=== PATIENT | male | born 1975 | race Caucasian/White ===

== ENCOUNTER 2017-04-29 13:27 | Emergency (ER) | payer BC ==
--- NOTE | 2017-04-29 15:26 | EDM.PDOC ---
ED HPI GENERAL MEDICAL PROBLEM - General Chief Complaint: General Stated Complaint: RIGHT FOOT PAIN Time Seen by Provider: 04/29/17 15:21 Source of Information: Reports: Patient - History of Present Illness INITIAL COMMENTS - FREE TEXT/NARRATIVE: HISTORY AND PHYSICAL: History of present illness: []Patient with history of gout presents with skilled symptoms in the right foot to denies injury or trauma no fever nausea vomiting chills sweats he relates the gout symptoms to drinking alcohol he has not been drinking over the last 3- 4 days due to flareup No fever nausea vomiting chills sweats no chest pain shortness breath headache dizziness palpitation about a urine symptoms Review of systems: As per history of present illness and below otherwise all systems reviewed and negative. Past medical history: As per history of present illness and as reviewed below otherwise noncontributory. Surgical history: As per history of present illness and as reviewed below otherwise noncontributory. Social history: No reported history of drug or alcohol abuse. Family history: As per history of present illness and as reviewed below otherwise noncontributory. Physical exam: HEENT: Atraumatic, normocephalic, pupils reactive, negative for conjunctival pallor or scleral icterus, mucous membranes moist, throat clear, neck supple, nontender, trachea midline. Lungs: Clear to auscultation, breath sounds equal bilaterally, chest nontender. Heart: S1S2, regular, negative for clicks, rubs, or JVD. Abdomen: Soft, nondistended, nontender. Negative for masses or hepatosplenomegaly. Negative for costovertebral tenderness. Pelvis: Stable nontender. Genitourinary: Deferred. Rectal: Deferred. Extremities: Atraumatic, negative for cords or calf pain. Neurovascular unremarkable. Neuro: Awake, alert, oriented. Cranial nerves II through XII unremarkable. Cerebellum unremarkable. Motor and sensory unremarkable throughout. Exam nonfocal. Right foot great toe red tender proximally consistent with gout otherwise no evidence of trauma open lesion or bruising Diagnostics: []Patient refuses x-ray or lab Therapeutics: []Indocin No. 30 no refill Medrol Dosepak Code Bharathi #3 no refill Impression: []Acute gout clinically Definitive disposition and diagnosis as appropriate pending reevaluation and review of above. Right Feet Pain Score (Numeric/FACES): 9 - Related Data Allergies Allergy/AdvReac Type Severity Reaction Status Date / Time No Known Allergies Allergy Verified 04/29/17 14:07 Home Meds: Home Meds Venlafaxine [Effexor XR] 150 mg PO BEDTIME 04/29/17 [History] Past Medical History HEENT History: Reports: None Cardiovascular History: Reports: None Respiratory History: Reports: None Gastrointestinal History: Reports: None Genitourinary History: Reports: None Musculoskeletal History: Reports: None Neurological History: Reports: None Psychiatric History: Reports: Anxiety Endocrine/Metabolic History: Reports: None Hematologic History: Reports: None Immunologic History: Reports: None Oncologic (Cancer) History: Reports: None Dermatologic History: Reports: None - Infectious Disease History Infectious Disease History: Reports: None - Past Surgical History Head Surgeries/Procedures: Reports: None Male Surgical History: Reports: None Social & Family History - Tobacco Use Years of Tobacco use: 15 Packs/Tins Daily: 0.4 - Caffeine Use Caffeine Use: Reports: Coffee - Recreational Drug Use Recreational Drug Use: No ED ROS GENERAL - Review of Systems Review Of Systems: ROS reveals no pertinent complaints other than HPI. ED EXAM, GENERAL - Physical Exam Exam: See Below Course - Vital Signs Last Recorded V/S: Last Vital Signs Temp 36.2 C 04/29/17 14:06 Pulse 86 04/29/17 14:59 Resp 18 04/29/17 14:59 BP 127/86 04/29/17 14:59 Pulse Ox 96 04/29/17 14:59 Departure - Departure Time of Disposition: 15:26 Disposition: Home, Self-Care 01 Condition: Good Clinical Impression: Acute gout - Discharge Information Referrals: PCP,None [Primary Care Provider] - Additional Instructions: Medication as directed Return if symptoms persist or worsen Establish primary care for further treatment as needed [facility] - Primary Care [address] [place] [id number] The following information is given to patients seen in the emergency department who are being discharged to home. This information is to outline your options for follow-up care. We provide all patients seen in our emergency department with a follow-up referral. The need for follow-up, as well as the timing and circumstances, are variable depending upon the specifics of your emergency department visit. If you don't have a primary care physician on staff, we will provide you with a referral. We always advise you to contact your personal physician following an emergency department visit to inform them of the circumstance of the visit and for follow-up with them and/or the need for any referrals to a consulting specialist. The emergency department will also refer you to a specialist when appropriate. This referral assures that you have the opportunity for follow-up care with a specialist. All of these measure are taken in an effort to provide you with optimal care, which includes your follow-up. Under all circumstances we always encourage you to contact your private physician who remains a resource for coordinating your care. When calling for follow-up care, please make the office aware that this follow-up is from your recent emergency room visit. If for any reason you are refused follow-up, please contact the [facility] emergency department at and asked to speak to the emergency department charge nurse.
== END 2017-04-29 15:48 | disposition home or self-care (01) ==
LOC: MW.ED 13:27
DX: M10.9 Gout, unspecified (principal)
CPT/HCPCS: 99282; 99283

== ENCOUNTER 2018-11-20 00:11 | Emergency (ER) | payer BC ==
[2018-11-20] MEDS ORDERED: Pantoprazole 40 MG Vial IVPUSH ONE (00:15)
[2018-11-20] MEDS ORDERED: Ondansetron 4 MG/2 ML SDV IVPUSH ONE (00:15)
[2018-11-20] MEDS ORDERED: Sodium Chloride 0.9% 1,000 ML IV ONE (00:15)
--- NOTE | 2018-11-20 00:18 | EDM.PDOC ---
ED HPI GENERAL MEDICAL PROBLEM - General Stated Complaint: PASSED OUT Time Seen by Provider: 11/20/18 00:17 Source of Information: Reports: Patient - History of Present Illness INITIAL COMMENTS - FREE TEXT/NARRATIVE: HISTORY AND PHYSICAL: History of present illness: [][facility] [place] [facility] [place] where he had a syncopal episode witnessed , hypotension 80s over 40s on EMS arrival There is learned patient has had these episodes many times throughout his life for the last 10-20 years, in the remote past he has had cardiac stress testing nearly at the 5 year [facility] per patient and He has history of cardiac murmur which I do not appreciate on exam today, however 2-D echo may be beneficial What he describes are very similar to vasovagal episodes usually developing some flashing light are bright light and being aware that he is going to pass out and then either sitting down or passing out if he does pass out he generally wakes on the floor and is generally not sure how he got there This is similar to rudi's episode however it happened more quickly than what he usually describes he notes that he had certainly been drinking alcohol [employer] and has worked all day without eating and as not been taking in any fluids Currently he is alert interactive cooperative easily examine no fever nausea vomiting diarrhea constipation chest pain shortness breath headache dizziness palpitation no bowel or urine symptoms Review of systems: As per history of present illness and below otherwise all systems reviewed and negative. Past medical history: As per history of present illness and as reviewed below otherwise noncontributory. Surgical history: As per history of present illness and as reviewed below otherwise noncontributory. Social history: No reported history of drug or alcohol abuse. Family history: As per history of present illness and as reviewed below otherwise noncontributory. Physical exam: HEENT: Atraumatic, normocephalic, pupils reactive, negative for conjunctival pallor or scleral icterus, mucous membranes moist, throat clear, neck supple, nontender, trachea midline. Lungs: Clear to auscultation, breath sounds equal bilaterally, chest nontender. Heart: S1S2, regular, negative for clicks, rubs, or JVD. Abdomen: Soft, nondistended, nontender. Negative for masses or hepatosplenomegaly. Negative for costovertebral tenderness. Pelvis: Stable nontender. Genitourinary: Deferred. Rectal: Deferred. Extremities: Atraumatic, negative for cords or calf pain. Neurovascular unremarkable. Neuro: Awake, alert, oriented. Cranial nerves II through XII unremarkable. Cerebellum unremarkable. Motor and sensory unremarkable throughout. Exam nonfocal. Diagnostics: [EBC CMP UA troponin EKG chest [address]] Therapeutics: [Saline Proton X Zofran ] Patient and were offered observation admission and telemetry however he declined/refused as they have done this many times he has not had any follow-up because of recent hence will have him follow-up with cardiology for consideration of stress testing and 2-D echo, then he plans to follow-up with Marjorie simons at [place] Impression: Syncopal episode Hypotension resolved Alcohol intoxication ] Definitive disposition and diagnosis as appropriate pending reevaluation and review of above. - Related Data Allergies Allergy/AdvReac Type Severity Reaction Status Date / Time No Known Allergies Allergy Verified 11/20/18 00:23 Home Meds: Home Meds Venlafaxine [Effexor XR] 75 mg PO BEDTIME 04/29/17 [History] Past Medical History HEENT History: Reports: None Cardiovascular History: Reports: None Respiratory History: Reports: None Gastrointestinal History: Reports: None Genitourinary History: Reports: None Musculoskeletal History: Reports: None Neurological History: Reports: None Psychiatric History: Reports: Anxiety Endocrine/Metabolic History: Reports: None Hematologic History: Reports: None Immunologic History: Reports: None Oncologic (Cancer) History: Reports: None Dermatologic History: Reports: None - Infectious Disease History Infectious Disease History: Reports: None - Past Surgical History Head Surgeries/Procedures: Reports: None Male Surgical History: Reports: None Social & Family History - Caffeine Use Caffeine Use: Reports: Coffee ED ROS GENERAL - Review of Systems Review Of Systems: See Below ED EXAM, GENERAL - Physical Exam Exam: See Below Course - Vital Signs Last Recorded V/S: Last Vital Signs Temp 95.4 F 11/20/18 00:52 Pulse 74 11/20/18 01:45 Resp 18 11/20/18 01:45 BP 120/81 11/20/18 01:45 Pulse Ox 95 11/20/18 01:45 - Orders/Labs/Meds Orders: Active Orders 24 hr Category Date Time Status Accu Check [Blood Glucose Check, Bedside] [RC] ONETIME Care 11/20/18 00:17 Active EKG Documentation Completion [RC] STAT Care 11/20/18 00:15 Active Orthostatic Vital Signs [RC] ASDIRECTED Care 11/20/18 02:29 Active CULTURE BLOOD [BC] Stat Lab 11/20/18 00:36 Received CULTURE BLOOD [BC] Stat Lab 11/20/18 00:38 Results Sodium Chloride 0.9% [Normal Saline] 1,000 ml Med 11/20/18 01:15 Active IV STAT Blood Culture x2 Reflex Set [OM.PC] Stat Oth 11/20/18 00:15 Ordered Medication Orders Sodium Chloride (Normal Saline) 1,000 mls @ 150 mls/hr IV STAT ANAHI Last Admin: 11/20/18 02:13 Dose: 150 mls/hr Labs: Laboratory Tests 11/20/18 11/20/18 11/20/18 Range/Units 00:28 00:38 00:38 WBC 8.60 (4.0-11.0) K/uL RBC 5.08 (4.50-5.90) M/uL Hgb 15.5 (13.0-17.0) g/dL Hct 41.7 (38.0-50.0) % MCV 82.1 (80.0-98.0) fL MCH 30.5 (27.0-32.0) pg MCHC 37.2 H (31.0-37.0) g/dL RDW Std Deviation 34.2 (28.0-62.0) fl RDW Coeff of [place] 12 (11.0-15.0) % Plt Count 157 (150-400) K/uL MPV 10.10 (7.40-12.00) fL Neut % (Auto) 63.9 (48.0-80.0) % Lymph % (Auto) 27.9 (16.0-40.0) % [place] % (Auto) 7.0 (0.0-15.0) % Eos % (Auto) 0.9 (0.0-7.0) % Baso % (Auto) 0.3 (0.0-1.5) % Neut # (Auto) 5.5 (1.4-5.7) K/uL Lymph # (Auto) 2.4 (0.6-2.4) K/uL [place] # (Auto) 0.6 (0.0-0.8) K/uL Eos # (Auto) 0.1 (0.0-0.7) K/uL Baso # (Auto) 0.0 (0.0-0.1) K/uL Lactate 3.3 H (0.20-2.00) mmol/L Sodium (136-148) mmol/L Potassium (3.5-5.1) mmol/L Chloride (98-107) mmol/L Carbon Dioxide (21.0-32.0) mmol/L BUN (7.0-18.0) mg/dL Creatinine (0.8-1.3) mg/dL Est Cr Clr Drug Dosing mL/min Estimated GFR (MDRD) ml/min Glucose (74-106) mg/dL POC Glucose 134 H (60-110) mg/dL Calcium (8.5-10.1) mg/dL Total Bilirubin (0.2-1.0) mg/dL AST (15-37) IU/L ALT (14-63) IU/L Alkaline Phosphatase (46-116) U/L Troponin I (0.000-0.056) ng/mL Total Protein (6.4-8.2) g/dL Albumin (3.4-5.0) g/dL Globulin (2.6-4.0) g/dL Albumin/Globulin Ratio (0.9-1.6) Urine Color Urine Appearance Urine pH (5.0-8.0) Ur Specific [place] (1.001-1.035) Urine Protein (NEGATIVE) mg/dL Urine Glucose (UA) (NEGATIVE) mg/dL Urine Ketones (NEGATIVE) mg/dL Urine Occult Blood (NEGATIVE) Urine Nitrite (NEGATIVE) Urine Bilirubin (NEGATIVE) Urine Urobilinogen (<2.0) EU/dL Ur Leukocyte Esterase (NEGATIVE) Urine Opiates Screen (NEGATIVE) Ur Oxycodone Screen (NEGATIVE) Urine Methadone Screen (NEGATIVE) Ur Barbiturates Screen (NEGATIVE) Ur Phencyclidine Scrn (NEGATIVE) Ur Amphetamine Screen (NEGATIVE) U Methamphetamines Scrn (NEGATIVE) U Benzodiazepines Scrn (NEGATIVE) U Cocaine Metab Screen (NEGATIVE) U Marijuana (THC) Screen (NEGATIVE) Ethyl Alcohol mg/dL 11/20/18 11/20/18 11/20/18 Range/Units 00:38 02:05 02:05 WBC (4.0-11.0) K/uL RBC (4.50-5.90) M/uL Hgb (13.0-17.0) g/dL Hct (38.0-50.0) % MCV (80.0-98.0) fL MCH (27.0-32.0) pg MCHC (31.0-37.0) g/dL RDW Std Deviation (28.0-62.0) fl RDW Coeff of [place] (11.0-15.0) % Plt Count (150-400) K/uL MPV (7.40-12.00) fL Neut % (Auto) (48.0-80.0) % Lymph % (Auto) (16.0-40.0) % [place] % (Auto) (0.0-15.0) % Eos % (Auto) (0.0-7.0) % Baso % (Auto) (0.0-1.5) % Neut # (Auto) (1.4-5.7) K/uL Lymph # (Auto) (0.6-2.4) K/uL [place] # (Auto) (0.0-0.8) K/uL Eos # (Auto) (0.0-0.7) K/uL Baso # (Auto) (0.0-0.1) K/uL Lactate (0.20-2.00) mmol/L Sodium 133 L (136-148) mmol/L Potassium 3.4 L (3.5-5.1) mmol/L Chloride 96 L (98-107) mmol/L Carbon Dioxide 25.3 (21.0-32.0) mmol/L BUN 17 (7.0-18.0) mg/dL Creatinine 0.9 (0.8-1.3) mg/dL Est Cr Clr Drug Dosing 120.84 mL/min Estimated GFR (MDRD) > 60.0 ml/min Glucose 141 H (74-106) mg/dL POC Glucose (60-110) mg/dL Calcium 8.1 L (8.5-10.1) mg/dL Total Bilirubin 0.4 (0.2-1.0) mg/dL AST 23 (15-37) IU/L ALT 42 (14-63) IU/L Alkaline Phosphatase 78 (46-116) U/L Troponin I < 0.050 (0.000-0.056) ng/mL Total Protein 7.1 (6.4-8.2) g/dL Albumin 4.0 (3.4-5.0) g/dL Globulin 3.1 (2.6-4.0) g/dL Albumin/Globulin Ratio 1.3 (0.9-1.6) Urine Color YELLOW Urine Appearance CLEAR Urine pH 5.5 (5.0-8.0) Ur Specific [place] 1.010 (1.001-1.035) Urine Protein NEGATIVE (NEGATIVE) mg/dL Urine Glucose (UA) NEGATIVE (NEGATIVE) mg/dL Urine Ketones NEGATIVE (NEGATIVE) mg/dL Urine Occult Blood NEGATIVE (NEGATIVE) Urine Nitrite NEGATIVE (NEGATIVE) Urine Bilirubin NEGATIVE (NEGATIVE) Urine Urobilinogen 0.2 (<2.0) EU/dL Ur Leukocyte Esterase NEGATIVE (NEGATIVE) Urine Opiates Screen NEGATIVE (NEGATIVE) Ur Oxycodone Screen NEGATIVE (NEGATIVE) Urine Methadone Screen NEGATIVE (NEGATIVE) Ur Barbiturates Screen NEGATIVE (NEGATIVE) Ur Phencyclidine Scrn NEGATIVE (NEGATIVE) Ur Amphetamine Screen NEGATIVE (NEGATIVE) U Methamphetamines Scrn NEGATIVE (NEGATIVE) U Benzodiazepines Scrn NEGATIVE (NEGATIVE) U Cocaine Metab Screen NEGATIVE (NEGATIVE) U Marijuana (THC) Screen NEGATIVE (NEGATIVE) Ethyl Alcohol 169 mg/dL Meds: Medications Generic Name Dose Route Start Last Admin Trade Name Freq PRN Reason Stop Dose Admin Sodium Chloride 1,000 mls @ 150 mls/hr 11/20/18 01:15 11/20/18 02:13 Normal Saline IV 150 mls/hr STAT ANAHI Administration Discontinued Medications Generic Name Dose Route Start Last Admin Trade Name Freq PRN Reason Stop Dose Admin Sodium Chloride 1,000 mls @ 999 mls/hr 11/20/18 00:15 11/20/18 00:37 Normal Saline IV 11/20/18 01:15 999 mls/hr STAT ONE Administration Sodium Chloride Confirm 11/20/18 00:34 11/20/18 00:40 Normal Saline Administered 11/20/18 00:35 20 mls/hr Dose Administration 20 mls @ as directed .ROUTE .STK-MED ONE Ondansetron HCl 8 mg 11/20/18 00:15 11/20/18 00:38 Zofran IVPUSH 11/20/18 00:16 8 mg ONETIME ONE Administration Pantoprazole Sodium 80 mg 11/20/18 00:15 11/20/18 00:40 Protonix Iv IVPUSH 11/20/18 00:16 80 mg .BOLUS ONE Administration Departure - Departure Time of Disposition: 02:49 Disposition: Home, Self-Care 01 Condition: Good Clinical Impression: Dehydration, Alcohol intoxication, Syncopal episodes - Discharge Information Additional Instructions: fluid hydration Return if symptoms persist or worsen Follow-up with primary care in 2 weeks sooner as needed ER referral for cardiology evaluation and consideration of 2-D echo and/or cardiac stress testing [facility] - Non-Interventional Cardiology [address] [place] [id number] [facility] [address] [place] [id number] The following information is given to patients seen in the emergency department who are being discharged to home. This information is to outline your options for follow-up care. We provide all patients seen in our emergency department with a follow-up referral. The need for follow-up, as well as the timing and circumstances, are variable depending upon the specifics of your emergency department visit. If you don't have a primary care physician on staff, we will provide you with a referral. We always advise you to contact your personal physician following an emergency department visit to inform them of the circumstance of the visit and for follow-up with them and/or the need for any referrals to a consulting specialist. The emergency department will also refer you to a specialist when appropriate. This referral assures that you have the opportunity for follow-up care with a specialist. All of these measure are taken in an effort to provide you with optimal care, which includes your follow-up. Under all circumstances we always encourage you to contact your private physician who remains a resource for coordinating your care. When calling for follow-up care, please make the office aware that this follow-up is from your recent emergency room visit. If for any reason you are refused follow-up, please contact the [facility] emergency department at and asked to speak to the emergency department charge nurse. - My Orders Last 24 Hours: My Active Orders 11/20/18 00:15 EKG Documentation Completion [RC] STAT Blood Culture x2 Reflex Set [OM.PC] Stat 11/20/18 00:17 Accu Check [Blood Glucose Check, Bedside] [RC] ONETIME 11/20/18 00:36 CULTURE BLOOD [BC] Stat 11/20/18 00:38 CULTURE BLOOD [BC] Stat 11/20/18 01:15 Sodium Chloride 0.9% [Normal Saline] 1,000 ml IV STAT 11/20/18 02:29 Orthostatic Vital Signs [RC] ASDIRECTED - Assessment/Plan Last 24 Hours: My Active Orders 11/20/18 00:15 EKG Documentation Completion [RC] STAT Blood Culture x2 Reflex Set [OM.PC] Stat 11/20/18 00:17 Accu Check [Blood Glucose Check, Bedside] [RC] ONETIME 11/20/18 00:36 CULTURE BLOOD [BC] Stat 11/20/18 00:38 CULTURE BLOOD [BC] Stat 11/20/18 01:15 Sodium Chloride 0.9% [Normal Saline] 1,000 ml IV STAT 11/20/18 02:29 Orthostatic Vital Signs [RC] ASDIRECTED
[2018-11-20] MEDS ORDERED: Sodium Chloride 0.9% 20 ML ONE (00:34)
[2018-11-20 01:11] LABS: CHLORIDE,CL 96 mmol/L (98-107); SODIUM,NA 133 mmol/L (136-148)
[2018-11-20] MEDS ORDERED: Sodium Chloride 0.9% 1,000 ML IV SCH (01:15)
--- NOTE | 2018-11-20 01:51 | CT ---
INDICATION: syncopal episode COMPARISON: 03.14.12 TECHNIQUE: A CT volumetric acquisition was performed of the brain without IV contrast. Please note that all CT scans at this facility use dose modulation, iterative reconstruction, and/or weight-based dosing when appropriate to reduce radiation dose to as low as reasonably achievable. FINDINGS: The CT images reveal a normal appearance of the cerebral ventricles and basal cisterns. There is no evidence of intracranial hemorrhage, tissue infarction or mass effect. The mastoid air cells and middle ear cavities are clear. The calvarium appears intact. There is normal aeration of the visualized paranasal sinuses. IMPRESSION: Negative head CT. Please note that all CT scans at this facility use dose modulation, iterative reconstruction, and/or weight-based dosing when appropriate to reduce radiation dose to as low as reasonably achievable. Dictated by Lucien Marley MD @ Nov 20 2018 1:48AM Signed by Dr. Lucien Marley @ Nov 20 2018 1:50AM
--- NOTE | 2018-11-20 01:53 | CR ---
Indication: Syncope Technique: Chest 1 view Comparison: December 08, 2009 Findings/Impression: Low lung volumes accentuate the cardiac size. No pneumothorax, focal infiltrate, or effusion. No acute osseous abnormality. Dictated by Leidy Ham MD @ Nov 20 2018 1:51AM Signed by Dr. Leidy Ham @ Nov 20 2018 1:51AM
== END 2018-11-20 03:15 | disposition home or self-care (01) ==
LOC: MW.ED 00:11
DX: R55 Syncope and collapse (principal); I95.9 Hypotension, unspecified; F10.129 Alcohol abuse with intoxication, unspecified; E86.0 Dehydration
CPT/HCPCS: 36415; 70450; 71045; 80053; 80305; 81003; 82962; 83605; 84484; 85025; 87040; 93005; 96361; 96374; 96375; 99285; C9113; G0480; J2405; J7040; 99284

== ENCOUNTER 2021-07-11 08:21 | Emergency (ER) | payer BC ==
[2021-07-11] MEDS ORDERED: Indomethacin 25 MG Cap PO ONE ×2 (08:41→09:00)
[2021-07-11] MEDS ORDERED: Acetaminophen/oxyCODONE 325-5 MG Tab PO ONE (08:41)
[2021-07-11] MEDS ORDERED: predniSONE 20 MG Tab PO ONE (08:42)
--- NOTE | 2021-07-11 08:45 | EDM.PDOC ---
ED HPI GENERAL MEDICAL PROBLEM - General Chief Complaint: Lower Extremity Injury/Pain Stated Complaint: FOOT INJURY Time Seen by Provider: 07/11/21 08:22 Source of Information: Reports: Patient History Limitations: Reports: No Limitations - History of Present Illness INITIAL COMMENTS - FREE TEXT/NARRATIVE: 45-year-old male past medical history gout presents with pain to his left foot. Patient does not member injuring the foot. Pain has been going on for about the last 3 days. Pain is worse in the morning. He notes swelling to the dorsum of the foot. He notes a history of gout but he states this typically presents in his toe joints and this pain seems more on the dorsum of the foot. It is worse when he bears weight when he is operating the clutch in his truck. He has been trying ice as well as elevating the foot. He has not had any medications. - Related Data Allergies Allergy/AdvReac Type Severity Reaction Status Date / Time No Known Allergies Allergy Verified 07/11/21 08:25 Home Meds: Home Meds Venlafaxine [Effexor XR] 75 mg PO BEDTIME 04/29/17 [History] Past Medical History HEENT History: Reports: None Cardiovascular History: Reports: None Respiratory History: Reports: None Gastrointestinal History: Reports: None Genitourinary History: Reports: None Musculoskeletal History: Reports: None Neurological History: Reports: None Psychiatric History: Reports: Anxiety Endocrine/Metabolic History: Reports: None Hematologic History: Reports: None Immunologic History: Reports: None Oncologic (Cancer) History: Reports: None Dermatologic History: Reports: None - Infectious Disease History Infectious Disease History: Reports: Chicken Pox, Novel Coronavirus - Past Surgical History Head Surgeries/Procedures: Reports: None Male Surgical History: Reports: None Other Musculoskeletal Surgeries/Procedures:: GOUT Social & Family History - Tobacco Use Tobacco Use Status *Q: Never Tobacco User - Caffeine Use Caffeine Use: Reports: Coffee - Recreational Drug Use Recreational Drug Use: No Review of Systems - Review of Systems Review Of Systems: Comprehensive ROS is negative, except as noted in HPI. ED EXAM, GENERAL - Physical Exam Exam: See Below Exam Limited By: No Limitations General Appearance: Alert, WD/WN, No Apparent Distress Ears: Hearing Grossly Normal Throat/Mouth: Normal Voice, No Airway Compromise Head: Atraumatic, Normocephalic Respiratory/Chest: No Respiratory Distress, No Accessory Muscle Use Cardiovascular: Normal Peripheral Pulses Extremities: Other (swelling to dorsum L foot, no erythema/warmth, palpable do rsalis pedis pulse, normal color/sensation to foot, normal active ROM L ankle) Neurological: Alert Psychiatric: Normal Affect, Normal Mood Skin Exam: Warm, Dry, Intact, Normal Color Course - Vital Signs Last Recorded V/S: Last Vital Signs Temp 96.8 F L 07/11/21 08:26 Pulse 83 07/11/21 08:26 Resp 17 07/11/21 08:26 BP 119/82 07/11/21 08:26 Pulse Ox 98 07/11/21 08:26 - Orders/Labs/Meds Meds: Medications Discontinued Medications Generic Name Dose Route Start Last Admin Trade Name Frandy PRN Reason Stop Dose Admin Acetaminophen 1,000 mg 07/11/21 08:51 07/11/21 09:30 Acetaminophen 500 Mg Tab PO 07/11/21 08:52 1,000 mg ONETIME ONE Administration Indomethacin 50 mg 07/11/21 09:00 07/11/21 09:30 Indomethacin 25 Mg Cap PO 07/11/21 09:01 50 mg ONETIME ONE Administration Oxycodone/Acetaminophen 2 tab 07/11/21 08:41 07/11/21 08:49 Acetaminophen/Oxycodone 325-5 Mg Tab PO 07/11/21 08:42 Not Given ONETIME ONE Prednisone 60 mg 07/11/21 08:42 07/11/21 08:49 Prednisone 20 Mg Tab PO 07/11/21 08:43 60 mg ONETIME ONE Administration - Re-Assessments/Exams Free Text/Narrative Re-Assessment/Exam: 07/11/21 08:44 Patient presents with atraumatic swelling of dorsum of left foot. Considering the past history of gout I believe this is the most likely etiology of patient's pain. Will treat with nonsteroidal anti-inflammatory and tylenol pain medication. Will get x-ray of the foot. Will start steroid 07/11/21 09:50 Will discharge patient with indomethacin, prednisone, podiatry follow-up. Departure - Departure Time of Disposition: 09:50 Disposition: Home, Self-Care 01 Condition: Good Clinical Impression: Gout Qualifiers: Gout site: foot Gout etiology: unspecified cause Chronicity: acute Laterality: left Qualified Code(s): M10.9 - Gout, unspecified - Discharge Information Instructions: Gout Forms: ED Department Discharge Additional Instructions: Your symptoms are suggestive of gout. Your foot x-ray shows a sesamoid bone but no fracture. I am treating you with anti-inflammatory medication. Below is the phone number for rod tape operator, if you are having continued pain despite anti- inflammatory medication I would suggest following up with the rod tape operator. Rarely we can miss fractures on x-rays so unfortunately this is always a possibility. It usually better visualized after a week as the area calcifies more. Podiatry: [facility], Dr[address] [facility] [phone] The following information is given to patients seen in the emergency department who are being discharged to home. This information is to outline your options for follow-up care. We provide all patients seen in our emergency department with a follow-up referral. The need for follow-up, as well as the timing and circumstances, are variable depending upon the specifics of your emergency department visit. If you don't have a primary care physician on staff, we will provide you with a referral. We always advise you to contact your personal physician following an emergency department visit to inform them of the circumstance of the visit and for follow-up with them and/or the need for any referrals to a consulting s pecialist. The emergency department will also refer you to a specialist when appropriate. This referral assures that you have the opportunity for follow-up care with a specialist. All of these measure are taken in an effort to provide you with optimal care, which includes your follow-up. Under all circumstances we always encourage you to contact your private physician who remains a resource for coordinating your care. When calling for follow-up care, please make the office aware that this follow-up is from your recent emergency room visit. If for any reason you are refused follow-up, please contact the [facility] Emergency Department at and asked to speak to the emergency department charge nurse. Please follow up with your primary care physician. If you do not have a primary care physician, see below: [facility] [address] [place] [id number] [facility] [address] [place] [address] [facility] [address] [place] [id number] Sepsis Event Note (ED) - Evaluation Sepsis Screening Result: No Definite Risk - Focused Exam Vital Signs: Vital Signs Temp Pulse Resp BP Pulse Ox 07/11/21 08:26 96.8 F L 83 17 119/82 98
[2021-07-11] MEDS ORDERED: Acetaminophen 500 MG Tab PO ONE (08:51)
--- NOTE | 2021-07-11 09:11 | CR ---
INDICATION: Pain. History of gout. TECHNIQUE: Left foot, two views. COMPARISON: None FINDINGS: Bones: Alignment is normal. Bipartite sesamoid bones. Fracture deformities are considered less likely unless there is a history of trauma. Joint spaces: Unremarkable. Soft tissues: Unremarkable. IMPRESSION: 1. Bipartite sesamoid bones. Transverse fracture deformities are considered less likely. Suggest correlation with physical exam findings and any history of injury. 2. No articular erosion. No periarticular osteopenia. Dictated by Migel Merino MD @ 07/11/2021 9:09:20 AM (Electronically Signed)
== END 2021-07-11 10:07 | disposition home or self-care (01) ==
LOC: MW.ED 08:21
DX: M10.9 Gout, unspecified (principal); Z86.16 Personal history of COVID-19
CPT/HCPCS: 73620; 99283; A9270; 99285

== ENCOUNTER 2021-09-20 10:48 | Emergency (ER) | payer BC ==
[2021-09-20] MEDS ORDERED: Acetaminophen/Codeine 120-12 MG/5 ML Soln 5 ML UD Cup PO ONE (11:06)
[2021-09-20 12:05] LABS: CORONAVIRUS COVID-19 NAA NEGATIVE (NEGATIVE); INFLUENZA A NAA POSITIVE (NEGATIVE); INFLUENZA B NAA NEGATIVE (NEGATIVE)
== END 2021-09-20 12:25 | disposition home or self-care (01) ==
LOC: MW.ED 10:48
DX: J10.1 Influenza due to other identified influenza virus with other respiratory manifestations (principal); Z20.822 Contact with and (suspected) exposure to COVID-19
CPT/HCPCS: 0240U; 71045; 87651; 99283; A9270

== ENCOUNTER 2022-02-17 19:09 | Emergency (ER) | payer BC ==
[2022-02-17] MEDS ORDERED: Sodium Chloride 0.9% 1,000 ML IV ONE (19:53)
[2022-02-17] MEDS ORDERED: cefTRIAXone 1 GM in Sodium Chloride 0.9% 50 ML IV ONE (19:56)
[2022-02-17 20:41] LABS: CARBON DIOXIDE,CO2 29.8 mmol/L (21.0-32.0); POTASSIUM,K 4.3 mmol/L (3.5-5.1)
[2022-02-17] MEDS ORDERED: Iopamidol 755 MG/ML 500 ML Multipack Bottle IVPUSH STA (21:18)
== END 2022-02-17 23:56 | disposition home or self-care (01) ==
LOC: MW.ED 19:09
DX: L03.116 Cellulitis of left lower limb (principal); Z86.16 Personal history of COVID-19
CPT/HCPCS: 36415; 73701; 80048; 83605; 85025; 85379; 87040; 96365; 99284; J0696; J7030; Q9967

== ENCOUNTER 2022-10-04 13:38 | Emergency (ER) | payer BC, OTHER | END 2022-10-04 15:18 | disposition home or self-care (01) | LOC: MW.ED 13:38 | DX: T17.990A Other foreign object in respiratory tract, part unspecified in causing asphyxiation, initial encounter (principal); Z86.16 Personal history of COVID-19 | CPT/HCPCS: 71045; 71045-26; 99283 ==